=== PATIENT | male | born 1985 | race Caucasian/White ===

== ENCOUNTER 2020-09-09 13:43 | Emergency (ER) | payer OTHER, BC ==
[~2020-09-09 13:43] MED LIST: Iopamidol-370 76% 500 ML 1 ML ONE
[2020-09-09] MEDS ORDERED: Boostrix 0.5 ML (Tdap) VIAL ONE ×2 (14:03→14:14)
[2020-09-09 14:30] LABS: Hemoglobin 14.9 g/dL (14.0-18.0); Mean Corpuscular HGB CONC 35.1 g/dL (32.0-36.0); Mean Corpuscular Hemoglobin 31.6 pg (27.0-31.0); Mean Platelet Volume 9.2 fL (7.4-10.4); Platelet Count 269 thou/uL (130-400); RBC Distribution Width 12.4 % (11.5-14.5); Red Blood Cell (RBC) Count 4.73 mill/uL (4.70-6.10); White Blood Cell (WBC) Count 21.1 thou/uL (4.8-10.8)
[2020-09-09 14:44] LABS: PTT 28.3 sec (22.9-36.1); Prothrombin Time 12.7 sec (12.0-14.7)
[2020-09-09 14:45] LABS: ALT (SGPT) 105 U/L (8-55); AST (SGOT) 57 U/L (5-34); Albumin 4.4 g/dL (3.5-5.0); Alkaline Phosphatase 97 U/L (40-110); Anion Gap 19 mmol/L (10-20); BUN (Urea Nitrogen) 9 mg/dL (8.9-20.6); Bilirubin, Total 0.4 mg/dL (0.2-1.2); Calc. Creatinine Clearance 0 mL/min (70-130); Calcium 9.5 mg/dL (7.8-10.44); Carbon Dioxide 17 mmol/L (22-29); Chloride 107 mmol/L (98-107); Globulin 2.7 g/dL (2.4-3.5); Glucose 134 mg/dL (70-105); Potassium 3.9 mmol/L (3.5-5.1); Protein, Total 7.1 g/dL (6.0-8.3); Sodium 139 mmol/L (136-145)
[2020-09-09] MEDS ORDERED: Lidocaine 1% w/Epinephrine 1:100K 20 ML VIAL ONE (14:48)
[2020-09-09 14:55] LABS: Band 18 % (5-11); Lymphocytes 7 % (21-51); MDiff Complete? YES; Monocytes 7 % (0-10); Neutrophil 60 % (42-75); Platelet Morphology Comment Appears Adequate; Polychromasia SLIGHT = 2-3 cells (100X) (0-2/hpf); Reactive Lymphocytes 8 % (0-10)
== END 2020-09-09 15:31 | disposition home or self-care (01) ==
LOC: ERS 13:43
DX: S01.01XA Laceration without foreign body of scalp, initial encounter (principal); S50.12XA Contusion of left forearm, initial encounter; R10.32 Left lower quadrant pain; M25.562 Pain in left knee; M25.561 Pain in right knee; M25.551 Pain in right hip; M25.552 Pain in left hip; V49.9XXA Car occupant (driver) (passenger) injured in unspecified traffic accident, initial encounter
CPT/HCPCS: 12002; 36415; 70450; 71260; 72125; 74177; 80053; 85025; 85610; 85730; 86850; 86900; 86901; 90471; 90715; G0390; Q9967